=== PATIENT | male | born 1965 | race Caucasian/White ===

== ENCOUNTER 2018-07-27 13:35 | Inpatient (IN) | payer OTHER ==
[2018-07-27 15:51] VITALS: BMI 32.4
[2018-07-27] MEDS ORDERED: MELATONIN 5 MG TABLETS PO PRN (17:50)
[2018-07-27] MEDS ORDERED: IBUPROFEN 400 MG TABLET (FP) PO PRN (17:50)
[2018-07-27] MEDS ORDERED: ACETAMINOPHEN 325 MG TABLET (FP) PO PRN ×2 (17:50)
[2018-07-27] MEDS ORDERED: MAGNESIUM CITRATE 300 ML BOTTLE PO PRN (17:50)
[2018-07-27] MEDS ORDERED: MENTHOL/PHENOL 1 EACH UD MM PRN (17:50)
[2018-07-27] MEDS ORDERED: MAGNESIUM HYDROX 2400MG/30ML ORAL SUSPENSION 30 ML CUP PO PRN (17:50)
[2018-07-27] MEDS ORDERED: METHOCARBAMOL 500 MG TABLET PO PRN (17:50)
[2018-07-27] MEDS ORDERED: hydrOXYzine PAMOATE 25 MG CAPSULE (FP) PO PRN (17:50)
[2018-07-27] MEDS ORDERED: BISMUTH SUBSALICYLATE 524 MG/30 ML UD PO PRN (17:50)
[2018-07-27] MEDS ORDERED: MAG HYDROX/AL HYDROX/SIMETH 30 ML UNIT-DOSE CUP PO PRN (17:50)
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
[2018-07-27] MEDS: chlordiazePOXIDE HCL 25 MG CAPSULE PO PRN (19:17)
[2018-07-27] MEDS: chlordiazePOXIDE HCL 25 MG CAPSULE PO SCH (22:16)
[2018-07-27] MEDS: GABAPENTIN 300 MG CAPSULE (FP) PO SCH (22:16)
[2018-07-27] MEDS: THIAMINE HCL 100 MG TABLET (FP) PO SCH (22:16)
[2018-07-28] MEDS: GABAPENTIN 300 MG CAPSULE (FP) PO SCH ×3 (06:31→22:30)
[2018-07-28] MEDS: chlordiazePOXIDE HCL 25 MG CAPSULE PO SCH ×4 (06:31→22:30)
[2018-07-28] MEDS: PRENATAL VITAMINS W/ FOLIC ACID TABLET (FP) PO SCH (10:13)
[2018-07-28] MEDS: PANTOPRAZOLE 40 MG TABLET (FP) PO SCH (10:13)
--- NOTE | 2018-07-28 11:01 | PN ---
[facility] CIWA - CIWA Score Nausea/Vomitin Muscle Tremors: 3 Anxiety: 1-Mildly Anxious Agitation: 0-Normal Activity Paroxysmal Sweats: 4-Forehead w/Sweat Beads Orientation: 0-Oriented Tacttile Disturbances: 0-None Auditory Disturbances: 0-None Visual Disturbances: 0-None Headache: 2-Mild CIWA-Ar Total Score: 12 BHS Progress Note (SOAP) Subjective: tiredness sweats interrupted sleep Objective: 07/28/18 11:00 Vital Signs 07/28/18 07/28/18 07/28/18 03:30 07:32 09:39 Temperature 98.1 F 99.0 F Pulse Rate 69 78 Respiratory 18 18 16 Rate Blood Pressure 138/93 145/81 pending labs Assessment: 07/28/18 10:59 No respiratory distress EENT WNL Full ROM, ambulating in the unit withdrawal sx Plan: Continue detox increase fluids
[2018-07-28 11:35] LABS: HEMATOCRIT 40.3 % (35.4-49); HEMOGLOBIN 13.8 GM/dL (11.7-16.9); MCH 30.9 pg (25.7-33.7); MCHC 34.2 g/dl (32.0-35.9); MEAN CELL VOLUME 90.2 fl (80-96); MEAN PLT VOLUME 8.6 fl (7.5-11.1); PLATELET COUNT 230 K/MM3 (134-434); RBC 4.46 M/mm3 (4.00-5.60); RDW 13.2 % (11.9-15.9); WHITE BLOOD COUNT 4.9 K/mm3 (4.0-10.0)
[2018-07-28 11:37] LABS: URINE APPEARANCE CLEAR; URINE BILIRUBIN NEGATIVE (<2.0 mg/dL); URINE COLOR YELLOW; URINE GLUCOSE (UA) NEGATIVE (NEGATIVE); URINE KETONE NEGATIVE (NEGATIVE); URINE LEUK ESTERASE NEGATIVE (NEGATIVE); URINE NITRITE NEGATIVE (NEGATIVE); URINE PROTEIN 2+ (NEGATIVE); URINE UROBILINOGEN NEGATIVE mg/dL (0.2-1.0)
[2018-07-28 11:50] LABS: ALBUMIN 3.9 g/dl (3.4-5.0); ALK PHOS 53 U/L (45-117); ANION GAP 9 MMOL/L (8-16); BILIRUBIN,TOTAL 0.5 mg/dL (0.2-1); BLOOD UREA NITROGEN 17 mg/dL (7-18); CHLORIDE 105 mmol/L (98-107); CO2 24 mmol/L (21-32); GLUCOSE,RANDOM 154 mg/dL (74-106); POTASSIUM 4.1 mmol/L (3.5-5.1); SGOT/AST 45 U/L (15-37); SGPT/ALT 50 U/L (13-61); SODIUM 138 mmol/L (136-145); TOT PROT 7.4 g/dl (6.4-8.2)
--- NOTE | 2018-07-28 12:03 | EKG ---
Test Reason : Blood Pressure : / mmHG Vent. Rate : 072 BPM Atrial Rate : 072 BPM P-R Int : 124 ms QRS Dur : 096 ms QT Int : 380 ms P-R-T Axes : 044 050 044 degrees QTc Int : 416 ms NORMAL SINUS RHYTHM NORMAL ECG NO PREVIOUS ECGS AVAILABLE Confirmed by PRAKASH BOWIE MD ([id number]) on 07/28/2018 12:03:03 PM Referred By: Confirmed By:PRAKASH BOWIE MD
[2018-07-28 12:41] LABS: CALCIUM OXALATE CRYSTALS FEW /hpf (NONE SEEN); URINE MUCUS FEW
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
[2018-07-28] MEDS: FLUoxetine HCL 20 MG CAPSULE (FP) PO SCH (14:08)
[2018-07-28] MEDS: DIVALPROEX SODIUM 500 MG TABLET E.C. PO SCH ×2 (14:08→22:30)
[2018-07-28] MEDS: chlordiazePOXIDE HCL 25 MG CAPSULE PO PRN (14:09)
[2018-07-28] MEDS ORDERED: IBUPROFEN 400 MG TABLET (FP) PO PRN (21:34)
[2018-07-28] MEDS: THIAMINE HCL 100 MG TABLET (FP) PO SCH (22:30)
[2018-07-29] MEDS: chlordiazePOXIDE HCL 25 MG CAPSULE PO SCH ×2 (05:37→10:15)
[2018-07-29] MEDS: GABAPENTIN 300 MG CAPSULE (FP) PO SCH (05:37)
[2018-07-29 09:58] VITALS: BP 129/78; PULSE 83; TEMP 97.7
[2018-07-29] MEDS: FLUoxetine HCL 20 MG CAPSULE (FP) PO SCH (10:14)
[2018-07-29] MEDS: PRENATAL VITAMINS W/ FOLIC ACID TABLET (FP) PO SCH (10:15)
[2018-07-29] MEDS: DIVALPROEX SODIUM 500 MG TABLET E.C. PO SCH (10:15)
[2018-07-29] MEDS: PANTOPRAZOLE 40 MG TABLET (FP) PO SCH (10:15)
--- NOTE | 2018-07-29 10:48 | PN ---
[facility]HS CIWA - CIWA Score Nausea/Vomitin Muscle Tremors: 2 Anxiety: 2 Agitation: 2 Paroxysmal Sweats: 1-Minimal Palms Moist Orientation: 0-Oriented Tacttile Disturbances: 1-Very Mild Itch/Numbness Auditory Disturbances: 1-Very Mild Visual Disturbances: 0-None Headache: 2-Mild CIWA-Ar Total Score: 13 BHS Progress Note (SOAP) Subjective: alert,irritable,anxious,interrupted sleep,tremor Objective: 07/29/18 10:46 Vital Signs Temperature 97.7 F 07/29/18 09:57 Pulse Rate 83 07/29/18 09:57 Respiratory Rate 18 07/29/18 09:57 Blood Pressure 129/78 07/29/18 09:57 O2 Sat by Pulse Oximetry (%) Assessment: 07/29/18 10:47 withdrawal symptom Plan: continue detox,bgm monitoring,initial glucose is 154
--- NOTE | 2018-07-29 10:58 | PN ---
[facility] Progress Note Note: patient did not want to complete ,high risk of relapsing explained,seen by counselor, signed release ama,advice to go to nearest emergency room if any problem,follow up with dogger and life style diet change,initial glucose is 154
--- NOTE | 2018-07-29 11:02 | DS ---
[facility] Detox Discharge Summary Admission Date: 07/27/18 Discharge Date: 07/29/18 - History Present History: Alcohol Dependence, Cocaine Dependence Additional Comments: patient signed release ama Pertinent Past History: ulcerative colitis - Physical Exam Results Vital Signs: Vital Signs Temperature 97.7 F 07/29/18 09:57 Pulse Rate 83 07/29/18 09:57 Respiratory Rate 18 07/29/18 09:57 Blood Pressure 129/78 07/29/18 09:57 O2 Sat by Pulse Oximetry (%) Pertinent Admission Physical Exam Findings: withdrawal signs and symptom Laboratory Last Values WBC 4.9 K/mm3 (4.0-10.0) 07/28/18 07:30 RBC 4.46 M/mm3 (4.00-5.60) 07/28/18 07:30 Hgb 13.8 GM/dL (11.7-16.9) 07/28/18 07:30 Hct 40.3 % (35.4-49) 07/28/18 07:30 MCV 90.2 fl (80-96) 07/28/18 07:30 MCH 30.9 pg (25.7-33.7) 07/28/18 07:30 MCHC 34.2 g/dl (32.0-35.9) 07/28/18 07:30 RDW 13.2 % (11.9-15.9) 07/28/18 07:30 Plt Count 230 K/MM3 (134-434) 07/28/18 07:30 MPV 8.6 fl (7.5-11.1) 07/28/18 07:30 Sodium 138 mmol/L (136-145) 07/28/18 07:30 Potassium 4.1 mmol/L (3.5-5.1) 07/28/18 07:30 Chloride 105 mmol/L (98-107) 07/28/18 07:30 Carbon Dioxide 24 mmol/L (21-32) 07/28/18 07:30 Anion Gap 9 MMOL/L (8-16) 07/28/18 07:30 BUN 17 mg/dL (7-18) 07/28/18 07:30 Creatinine 1.0 mg/dL (0.55-1.3) 07/28/18 07:30 Creat Clearance w eGFR 78.78 (>60) 07/28/18 07:30 Random Glucose 154 mg/dL (74-106) H 07/28/18 07:30 Calcium 9.0 mg/dL (8.5-10.1) 07/28/18 07:30 Total Bilirubin 0.5 mg/dL (0.2-1) 07/28/18 07:30 AST 45 U/L (15-37) H 07/28/18 07:30 ALT 50 U/L (13-61) 07/28/18 07:30 Alkaline Phosphatase 53 U/L (45-117) 07/28/18 07:30 Total Protein 7.4 g/dl (6.4-8.2) 07/28/18 07:30 Albumin 3.9 g/dl (3.4-5.0) 07/28/18 07:30 Urine Color Yellow 07/28/18 08:00 Urine Appearance Clear 07/28/18 08:00 Urine pH 5.0 (5.0-8.0) 07/28/18 08:00 Ur Specific [place] 1.029 (1.010-1.035) 07/28/18 08:00 Urine Protein 2+ (NEGATIVE) H 07/28/18 08:00 Urine Glucose (UA) Negative (NEGATIVE) 07/28/18 08:00 Urine Ketones Negative (NEGATIVE) 07/28/18 08:00 Urine Blood Negative (NEGATIVE) 07/28/18 08:00 Urine Nitrite Negative (NEGATIVE) 07/28/18 08:00 Urine Bilirubin Negative (<2.0 mg/dL) 07/28/18 08:00 Urine Urobilinogen Negative mg/dL (0.2-1.0) 07/28/18 08:00 Ur Leukocyte Esterase Negative (NEGATIVE) 07/28/18 08:00 Urine WBC (Auto) 0-1 /hpf (3-5) 07/28/18 08:00 Urine RBC (Auto) No Result Required. 07/28/18 08:00 Calcium Oxalate Crystal Few /hpf (NONE SEEN) 07/28/18 08:00 Urine Mucus Few 07/28/18 08:00 Valproic Acid 26.7 ug/ml (50-100) L 07/28/18 07:30 RPR Titer Nonreactive (NONREACTIVE) 07/28/18 07:30 - Medication Discharge Medications: Ambulatory Orders Adalimumab [Humira] 40 mg SQ WEEKLY 07/27/18 Divalproex [Depakote -] 500 mg PO BID 07/27/18 Fluoxetine HCl [Prozac -] 40 mg PO DAILY 07/27/18 Gabapentin 300 mg PO TID 07/27/18 Lamotrigine [Lamictal -] 100 mg PO BID 07/27/18 Naltrexone HCl 50 mg PO DAILY 07/27/18 Omeprazole 40 mg PO DAILY 07/27/18 - Diagnosis (1) Alcohol dependence with uncomplicated withdrawal Current Visit: Yes Status: Acute (2) Cocaine abuse Current Visit: Yes Status: Acute (3) Crohns disease Current Visit: Yes Status: Chronic Qualifiers: Gastrointestinal tract location: unspecified location (4) Nicotine dependence Current Visit: Yes Status: Chronic - AMA Did Patient Leave Against Medical Advice: Yes
--- NOTE | 2018-07-29 11:03 | PN ---
[facility] Progress Note Note: addendum patient has crohn's disease not ulcerative colitis
[2018-07-29] MEDS ORDERED: chlordiazePOXIDE HCL 10 MG CAPSULE PO SCH (23:00)
[2018-07-29] MEDS ORDERED: chlordiazePOXIDE HCL 10 MG CAPSULE PO PRN (23:00)
[2018-07-30] MEDS ORDERED: chlordiazePOXIDE HCL 10 MG CAPSULE PO SCH (23:00)
== END 2018-07-29 11:47 | disposition left against medical advice (07) | DRG 770 ==
LOC: YASAS 13:35 → Y6N 18:01
PROVIDERS: ADMIT Surgery; ATTEND Surgery
PROC: HZ2ZZZZ Detoxification Services for Substance Abuse Treatment (ICD-10-PCS; principal; 2018-07-27)
DX: F10.230 Alcohol dependence with withdrawal, uncomplicated (principal); F14.10 Cocaine abuse, uncomplicated; F17.210 Nicotine dependence, cigarettes, uncomplicated; F31.9 Bipolar disorder, unspecified; F43.10 Post-traumatic stress disorder, unspecified; F19.24 Other psychoactive substance dependence with psychoactive substance-induced mood disorder; K50.90 Crohn's disease, unspecified, without complications; K21.9 Gastro-esophageal reflux disease without esophagitis; Z91.5 Personal history of self-harm
CPT/HCPCS: 36415; 80053; 80164; 81003; 81015; 85027; 86593; 93005; 93010